=== PATIENT | male | born 1940 | race Caucasian/White ===

== ENCOUNTER 2020-04-17 11:38 | Emergency (ER) | payer MEDICARE, OTHER, SELFPAY ==
[2020-04-17 11:42] VITALS: BP 138/74; PULSE 86; RESP 16; TEMP 37.1; O2SAT 96
--- NOTE | 2020-04-17 12:30 | DI.CT.S_ITS ---
PROCEDURE: CT ABDOMEN PELVIS W CON INDICATIONS: pain prior SBO TECHNIQUE: After the administration of intravenous contrast, 5 mm thick sections acquired from the diaphragm to the symphysis. 5 mm coronal and sagittal reformats were acquired. For radiation dose reduction, the following was used: automated exposure control, adjustment of mA and/or kV according to patient size. COMPARISON: None. FINDINGS: Image quality: Excellent. ABDOMEN: Lung bases: There is mild atelectasis in the lung bases. Within the left lingula, there is a small subpleural nodule measuring up to 4 mm. Heart size is normal. There is a pacemaker lead extending into the right ventricle. Coronary arterial vascular calcifications noted. There is a moderate-sized hiatal hernia. Solid organs: Evaluation of the liver demonstrates no focal hepatic lesions. The gallbladder is distended without gallbladder wall thickening or calcified gallstones. Biliary system is non-dilated. Pancreas enhances normally. No peripancreatic fat stranding or fluid collections. No pancreatic duct dilatation. The spleen is normal in size. No adrenal nodules. There is an obstructing stone in the right renal pelvis measuring up to 1.3 cm with associated moderate right hydronephrosis. There is associated right perinephric stranding as well as slightly asymmetrically decreased enhancement of the right kidney. Mild asymmetric urothelial thickening is also noted in the right renal collecting system. Within the inferior pole of the right kidney, there is a nonobstructing stone measuring up to 0.5 cm. The left kidney demonstrates multiple parapelvic cysts without hydronephrosis. Peritoneum and bowel: Bowel loops demonstrate normal wall thickness and caliber. There is colonic diverticulosis without acute diverticulitis. No free fluid or air. Nodes and vessels: No retroperitoneal or mesenteric adenopathy by size criteria. Aorta and inferior vena cava are normal in size. 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 PELVIS: Genitourinary: Bladder wall thickness is normal.. The prostate demonstrates mild enlargement. Miscellaneous: No inguinal hernias or adenopathy. Bones: No suspicious bony lesions. No vertebral body compression fractures. There is a levoscoliosis of the lumbar spine centered at L3. Multilevel moderate to severe degenerative disc disease demonstrated within the mid and lower lumbar spine. IMPRESSION: 1. Large obstructing stone in the right renal pelvis with associated moderate right hydronephrosis associated with prominent perinephric stranding and mild urothelial thickening. Recommend correlation clinically for possible urinary tract infection. Mild asymmetrically delayed right nephrogram is also noted. 2. Additional small non obstructing right renal stone. 3. Small nonspecific subpleural nodule in the left lingula measuring up to 4 mm. If patient is at high risk for malignancy, a follow-up CT may be performed in 12 months to demonstrate stability. Dictated by: Aquiles Pretty M.D. on 04/17/2020 at 13:42 Approved by: Aquiles Pretty M.D. on 04/17/2020 at 13:52
[2020-04-17 12:33] LABS: Add Manual Diff / Slide Review NO; Basophils Absolute Auto 100 /uL (0-100); Basophils Percent Auto 0.7 % (0-2); Eosinophils Absolute Auto 900 /uL (0-450); Eosinophils Percent Auto 9.2 % (2-4); Hematocrit 31.7 % (41-53); Hemoglobin 10.7 g/dL (13.5-17.5); Lymphocytes Absolute Auto 900 /uL (1100-4500); Lymphocytes Percent Auto 8.8 % (25-40); Mean Corpuscular HGB Conc 33.7 % (30-36); Mean Corpuscular Hemoglobin 35.4 PG (26-34); Mean Corpuscular Volume 105.1 fL (80-100); Monocytes Absolute Auto 700 /uL (0-900); Monocytes Percent Auto 7.2 % (3-14); Neutrophils Absolute Auto 7600 /uL (1500-7000); Neutrophils Percent Auto 74.1 % (50-75); Platelet Count 219 X10^3/uL (150-400); Red Blood Cell Count 3.02 X10^6/uL (4.5-5.9); Red Cell Distribution Width 12.9 % (11.6-14.8); White Blood Cell Count 10.2 X10^3/uL (4.5-11.0)
--- NOTE | 2020-04-17 12:40 | ED.ABDPAIN ---
HPI - Abdominal Pain General Chief Complaint: Abdominal Pain Stated Complaint: Possibly SBO Time Seen by Provider: 04/17/20 11:40 Source: patient Mode of arrival: EMS Limitations: no limitations History of Present Illness HPI narrative: Patient is an 80-year-old male history of small-bowel obstruction presenting with abdominal pain which started at 7:00 a.m. this morning. He denies any nausea or vomiting he is not passing gas but had a normal bowel movement last night he says pain is actually a little bit better now. Initially he had retrocecal appendicitis which then caused adhesions he has had previous surgery for adhesions are. However he says usually it self-resolved he actually does not remember being admitted to the hospital for treatment and has not had an NG tube in a number of years. He said this morning he felt it coming on and was pacing around the house and it was not going away. MD complaint: abdominal pain Onset (ago): hour(s) Pain Consistency: intermittent Related Data Allergies Allergy/AdvReac Type Severity Reaction Status Date / Time No Known Drug Allergies Allergy Verified 04/17/20 12:06 Review of Systems Review of Systems Narrative: GENERAL: Denies chills, fatigue, malaise, fever, sweats, travel HEENT: Denies sinus pain, ear pain, sore throat, difficulty swallowing, neck pain RESPIRATORY: Denies dyspnea, cough, wheezing, hemoptysis, sputum. CARDIOVASCULAR: Denies chest pain, palpitations, orthopnea, edema GASTROINTESTINAL: See HPI : Denies dysuria, frequency, incontinence, hematuria, urinary retention, flank pain. MUSCULOSKELETAL: Denies weakness, joint pain, or bony pain SKIN: No rash, no erythema, no pruritus NEUROLOGIC: Denies weakness, dizziness, headache, numbness, change in speech, confusion PSYCHIATRIC: No concerning psychosocial issues. 12 point review of systems is negative except for those stated above and HPI Patient History Medical History Diabetes (Acute) Hypertension (Acute) Small bowel obstruction (Acute) Surgical History Status post appendectomy (Acute) Social History Smoking Status: Never smoker Smoking Status: Never smoker alcohol intake frequency: a few times a week Substance Use Type: does not use Exam Initial Vital Signs Initial Vital Signs: Vital Signs Temperature 98.8 F 04/17/20 11:42 Pulse Rate 86 04/17/20 11:42 Respiratory Rate 16 04/17/20 11:42 Blood Pressure 138/74 04/17/20 11:42 Pulse Oximetry 96 04/17/20 11:42 GENERAL: Alert well-appearing male HEENT: Head atraumatic,EOMI, pupils reactive, face symmetric CARDIOVASCULAR: Regular rate and rhythm without murmurs, rubs or gallops. RESPIRATORY: Breath sounds equal bilaterally, no wheezes rales or rhonchi. ABDOMEN: Soft, tender around mid abdomen Normoactive bowel sounds all 4 quadrants. No guarding or rebound. No distention. EXTREMITIES: Normal range of motion, no clubbing or edema. Neurovascularly intact NEUROLOGICAL: Alert and oriented x4.Normal gait and speech. SKIN: Warm, dry, no laceration, no petechiae, no rashes or lesions. Course Orders Ordered: ED Orders 04/17/20 12:26 Complete Blood Count AUTO DIFF Stat Comprehensive Metabolic Panel Stat Lactate (Lactic Acid) Stat Lipase Stat 04/17/20 12:30 CT abdomen pelvis w con Stat 04/17/20 12:50 Urine Microscopic Stat Discontinued Medications Sodium Chloride (Normal Saline 0.9%) 1,000 mls @ 150 mls/hr IV CONT SILVESTRE Last Infusion: 04/17/20 14:47 Dose: 150 mls/hr Documented by: Admin: 04/17/20 13:43 Dose: 150 mls/hr Documented by: KAY Vital Signs Vital signs: Vital Signs - 8 hr 04/17/20 11:42 04/17/20 14:12 04/17/20 14:13 Temperature 98.8 F Pulse Rate 86 89 90 Respiratory Rate 16 26 H 24 Blood Pressure 138/74 128/71 Pulse Oximetry 96 98 97 04/17/20 14:30 Temperature Pulse Rate 88 Respiratory Rate 22 Blood Pressure 127/69 Pulse Oximetry 97 MDM - Abdominal Pain Lab Data Attestation: I reviewed the patient's lab results. Result diagrams: 04/17/20 12:26 04/17/20 12:26 Labs: Lab Results 04/17/20 04/17/20 04/17/20 Range/Units 12:26 12:26 12:26 WBC 10.2 (4.5-11.0) X10^3/uL RBC 3.02 L (4.5-5.9) X10^6/uL Hgb 10.7 L (13.5-17.5) g/dL Hct 31.7 L (41-53) % MCV 105.1 H (80-100) fL MCH 35.4 H (26-34) PG MCHC 33.7 (30-36) % RDW 12.9 (11.6-14.8) % Plt Count 219 (150-400) X10^3/uL Neut % (Auto) 74.1 (50-75) % Lymph % (Auto) 8.8 L (25-40) % [place] % (Auto) 7.2 (3-14) % Eos % (Auto) 9.2 H (2-4) % Baso % (Auto) 0.7 (0-2) % Neut # (Auto) 7600 H (4376-3543) /uL Lymph # (Auto) 900 L (2351-3509) /uL [place] # (Auto) 700 (0-900) /uL Eos # (Auto) 900 H (0-450) /uL Baso # (Auto) 100 (0-100) /uL Sodium 141 (137-145) mmol/L Potassium 5.1 (3.4-5.1) mmol/L Chloride 117 H (98-107) mmol/L Carbon Dioxide 23 (22-32) mmol/L BUN 35 H (9-20) mg/dL Creatinine 1.49 H (0.66-1.25) mg/dL Estimated GFR 45.2 L (>60) mL/min BUN/Creatinine Ratio 23.5 H (6-22) Glucose 112 H (80-110) mg/dL Lactate 1.4 (0.7-2.1) mmol/L Calcium 9.9 (8.4-10.2) mg/dL Total Bilirubin 0.4 (0.2-1.3) mg/dL AST 18 (17-59) IU/L ALT 16 (<50) IU/L Alkaline Phosphatase 83 (38-126) U/L Total Protein 6.0 L (6.3-8.2) g/dL Albumin 3.5 (3.5-5.0) g/dL Globulin 2.5 (1.7-4.1) g/dL Albumin/Globulin Ratio 1.4 (1.0-2.8) Lipase 78 (23-300) U/L Urine RBC (0-5/HPF) Urine WBC (0-5/HPF) Urine Bacteria (None) Hyaline Casts (None) Ur Culture Indicated? 04/17/20 Range/Units 12:50 WBC (4.5-11.0) X10^3/uL RBC (4.5-5.9) X10^6/uL Hgb (13.5-17.5) g/dL Hct (41-53) % MCV (80-100) fL MCH (26-34) PG MCHC (30-36) % RDW (11.6-14.8) % Plt Count (150-400) X10^3/uL Neut % (Auto) (50-75) % Lymph % (Auto) (25-40) % [place] % (Auto) (3-14) % Eos % (Auto) (2-4) % Baso % (Auto) (0-2) % Neut # (Auto) (4490-4358) /uL Lymph # (Auto) (9038-7635) /uL [place] # (Auto) (0-900) /uL Eos # (Auto) (0-450) /uL Baso # (Auto) (0-100) /uL Sodium (137-145) mmol/L Potassium (3.4-5.1) mmol/L Chloride (98-107) mmol/L Carbon Dioxide (22-32) mmol/L BUN (9-20) mg/dL Creatinine (0.66-1.25) mg/dL Estimated GFR (>60) mL/min BUN/Creatinine Ratio (6-22) Glucose (80-110) mg/dL Lactate (0.7-2.1) mmol/L Calcium (8.4-10.2) mg/dL Total Bilirubin (0.2-1.3) mg/dL AST (17-59) IU/L ALT (<50) IU/L Alkaline Phosphatase (38-126) U/L Total Protein (6.3-8.2) g/dL Albumin (3.5-5.0) g/dL Globulin (1.7-4.1) g/dL Albumin/Globulin Ratio (1.0-2.8) Lipase (23-300) U/L Urine RBC 0-1/hpf (0-5/HPF) Urine WBC 0-1/hpf (0-5/HPF) Urine Bacteria Few (2-10) H (None) Hyaline Casts 0-1/lpf (None) Ur Culture Indicated? Cult not indicated Point of care testing: Urine Dip Bedside Urine Glucose Negative Bedside Urine Bilirubin + 1 Bedside Urine Ketone - Negative Urine Specific [place] 1.020 Bedside Urine Occult Blood +/- Bedside Urine pH 5.5 Bedside Urine Protein +/- 15 Bedside Urine Urobilinogen - Negative Bedside Urine Nitrite - Negative Bedside Urine Leukocytes - Negative Esterase Imaging Data CT scan - abdomen/pelvis: Radiologist's Impression: PROCEDURE: CT ABDOMEN PELVIS W CON INDICATIONS: pain prior SBO TECHNIQUE: After the administration of intravenous contrast, 5 mm thick sections acquired from the diaphragm to the symphysis. 5 mm coronal and sagittal reformats were acquired. For radiation dose reduction, the following was used: automated exposure control, adjustment of mA and/or kV according to patient size. COMPARISON: None. FINDINGS: Image quality: Excellent. ABDOMEN: Lung bases: There is mild atelectasis in the lung bases. Within the left lingula, there is a small subpleural nodule measuring up to 4 mm. Heart size is normal. There is a pacemaker lead extending into the right ventricle. Coronary arterial vascular calcifications noted. There is a moderate-sized hiatal hernia. Solid organs: Evaluation of the liver demonstrates no focal hepatic lesions. The gallbladder is distended without gallbladder wall thickening or calcified gallstones. Biliary system is non-dilated. Pancreas enhances normally. No peripancreatic fat stranding or fluid collections. No pancreatic duct dilatation. The spleen is normal in size. No adrenal nodules. There is an obstructing stone in the right renal pelvis measuring up to 1.3 cm with associated moderate right hydronephrosis. There is associated right perinephric stranding as well as slightly asymmetrically decreased enhancement of the right kidney. Mild asymmetric urothelial thickening is also noted in the right renal collecting system. Within the inferior pole of the right kidney, there is a nonobstructing stone measuring up to 0.5 cm. The left kidney demonstrates multiple parapelvic cysts without hydronephrosis. Peritoneum and bowel: Bowel loops demonstrate normal wall thickness and caliber. There is colonic diverticulosis without acute diverticulitis. No free fluid or air. Nodes and vessels: No retroperitoneal or mesenteric adenopathy by size criteria. Aorta and inferior vena cava are normal in size. 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 PELVIS: Genitourinary: Bladder wall thickness is normal.. The prostate demonstrates mild enlargement. Miscellaneous: No inguinal hernias or adenopathy. Bones: No suspicious bony lesions. No vertebral body compression fractures. There is a levoscoliosis of the lumbar spine centered at L3. Multilevel moderate to severe degenerative disc disease demonstrated within the mid and lower lumbar spine. IMPRESSION: 1. Large obstructing stone in the right renal pelvis with associated moderate right hydronephrosis associated with prominent perinephric stranding and mild urothelial thickening. Recommend correlation clinically for possible urinary tract infection. Mild asymmetrically delayed right nephrogram is also noted. 2. Additional small non obstructing right renal stone. 3. Small nonspecific subpleural nodule in the left lingula measuring up to 4 mm. If patient is at high risk for malignancy, a follow-up CT may be performed in 12 months to demonstrate stability. Dictated by: Aquiles Pretty M.D. on 04/17/2020 at 13:42 Approved by: Aquiles Pretty M.D. on 04/17/2020 at 13:52 MDM Narrative Medical decision making narrative: Patient says his creatinine is always a little elevated he is not sure what his numbers are he is also aware of his pulmonary nodule. He says that he has had a renal stone for some time as well. I am not convinced that patient has small bowel obstruction he never had any nausea vomiting or abdominal distention. It is unclear exactly what caused his abdominal pain I do not believe his renal stone cause any pain it does not seem to be moving. I discussed with him signs and symptoms of a bowel obstruction and when to return to the ED I discussed all findings with the patient, Education has been performed regarding treatment plan, diagnosis, warning signs and symptoms and all concerns have been addressed. Verbally agree with and understood all of the above. Discharge Plan Departure Patient Disposition: Home Clinical Impression: Calculus of kidney Abdominal pain Qualifiers: Abdominal location: generalized Qualified Code(s): R10.84 - Generalized abdominal pain Discharge Date/Time: 04/17/20 15:08 Instructions: DI for Kidney Stones, DI for Abdominal Pain-Adult Activity Restrictions/Additional Instructions: *YOU HAVE BEEN DIAGNOSED WITH abdominal pain *WHAT TO DO: At this time you do not have a small bowel obstruction. You are noted to have a stone in your kidney on the right. You may require urology consultation. You are also noted to have a pulmonary nodule on the left which will require a repeat CT scan to be sure it is not changing *CONTINUE TO TAKE MEDICATIONS DIRECTED *FOLLOW UP WITH YOUR PRIMARY CARE PROVIDER IN 2-3 DAYS *RETURN TO ER IF YOU SHOULD HAVE increasing abdominal pain, hardening of abdomen, vomiting, OR ANY NEW, WORSENING OR CONCERNING SYMPTOMS Referrals: [facility] [Outside]
[2020-04-17 12:53] LABS: Lactate (Lactic Acid) 1.4 mmol/L (0.7-2.1)
[2020-04-17 12:54] LABS: Alanine Aminotransferase 16 IU/L (<50); Albumin 3.5 g/dL (3.5-5.0); Albumin Globulin Ratio 1.4 (1.0-2.8); Alkaline Phosphatase 83 U/L (38-126); Aspartate Aminotransferase 18 IU/L (17-59); BUN Creatinine Ratio 23.5 (6-22); Bilirubin Total 0.4 mg/dL (0.2-1.3); Blood Urea Nitrogen 35 mg/dL (9-20); Calcium 9.9 mg/dL (8.4-10.2); Carbon Dioxide 23 mmol/L (22-32); Chloride 117 mmol/L (98-107); Estimated Glomerular Filt Rate 45.2 mL/min (>60); Globulin 2.5 g/dL (1.7-4.1); Glucose 112 mg/dL (80-110); HEMOLYSIS < 15 (0-50); Lipase 78 U/L (23-300); Potassium 5.1 mmol/L (3.4-5.1); Sodium 141 mmol/L (137-145)
[2020-04-17 13:33] LABS: Bacteria Urine Few (2-10); Culture Indicated Urine Cult Not Indicated; Hyaline Casts Urine 0-1/LPF; RBC Urine 0-1/HPF (0-5/HPF); WBC Urine 0-1/HPF (0-5/HPF)
[2020-04-17] MEDS: SODIUM CHLORIDE 0.9% 1,000 ML 150 ML IV (13:43)
[2020-04-17 14:12] VITALS: PULSE 89; RESP 26; O2SAT 98
[2020-04-17 14:13] VITALS: BP 128/71; PULSE 90; RESP 24; O2SAT 97
[2020-04-17 14:30] VITALS: BP 127/69; PULSE 88; RESP 22; O2SAT 97
== END 2020-04-17 15:08 | disposition home or self-care (01) ==
PROVIDERS: Emergency Provider Emergency Medicine
DX: N20.0 Calculus of kidney (principal); R10.84 Generalized abdominal pain; R79.89 Other specified abnormal findings of blood chemistry; R91.1 Solitary pulmonary nodule
CPT/HCPCS: 36415; 74177; 80053; 81003; 81015; 83605; 83690; 85025; 96360; 99284; Q9967

== ENCOUNTER 2020-05-08 16:53 | Emergency (ER) | payer MEDICARE, OTHER, SELFPAY ==
[2020-05-08] VITALS (17 sets, daily range): BP systolic 86–126; BP diastolic 50–72; PULSE 79–120; RESP 16–29; TEMP 36.4–38.1; O2SAT 93–98
--- NOTE | 2020-05-08 17:08 | DI.RAD.S_ITS ---
PROCEDURE: XR CHEST 1V INDICATIONS: flu-like symptoms TECHNIQUE: One view of the chest was acquired. COMPARISON: None. FINDINGS: Surgical changes and devices: A single lead pacer device is seen. Lungs and pleura: An incomplete inspiratory result is noted, causing a crowded appearance to the lung markings. No focal infiltrates are seen. No pneumothorax or significant pleural effusions are seen. Mediastinum: The cardiac contours are within normal limits. The aorta demonstrates calcification and tortuosity. Bones and chest wall: Age-appropriate bony degenerative changes are seen. No suspicious bony lesions. Overlying soft tissues appear unremarkable. IMPRESSION: Limited portable chest examination, without a significant cardiopulmonary abnormality identified. If there is clinical concern for a developing pulmonary process, a short-term followup chest series (with PA and lateral views, performed in deep inspiration) is suggested for further evaluation. Postoperative and degenerative changes are seen. Dictated by: Jorge Robertson M.D. on 05/08/2020 at 16:33 Approved by: Jorge Robertson M.D. on 05/08/2020 at 16:34
[2020-05-08 17:20] LABS: pH ABG 7.33 (7.35-7.45)
[2020-05-08 17:21] LABS: Fractionated Inspired Oxygen 21; HCO3 ABG 13 mmol/L (22-26); Oxygen Saturation ABG 94 % (95-100); PCO2 ABG 24.3 mmHg (35-45); PO2 ABG 76 mmHg (80-100); TCO2 ABG 13 mmol/L (21-31)
[2020-05-08] MEDS: SODIUM CHLORIDE 0.9% 1,000 ML 1000 ML IV ×2 (17:26→20:21)
[2020-05-08] MEDS: SODIUM CHLORIDE 0.9% 1,000 ML 150 ML IV (17:26)
--- NOTE | 2020-05-08 17:27 | ED.SEPSIS ---
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 The patient was seen in the clinic and was noted to have a fever and temperature to 105 was tachycardic and hypoxic as well as hypotensive and sent here to the emergency department. The patient had a stent removed from his left ureter for a kidney stone at [facility] on Friday. The patient has had fever chills and sweats without any headache. He has had a minimal cough with minimal shortness of breath but denies any chest pain. He has not been dizzy or lightheaded. He denies urinary frequency or urgency but has had burning dysuria and hematuria. The patient does not smoke cigarettes or use marijuana but drinks alcohol . He has had a history of asthma minor COPD with hypertension and diabetes mellitus. He denies a history of myocardial infarction stroke or congestive heart failure. He denies a history of hepatitis TB or HIV. He states that when he had his stent placed for the kidney stone he was tested negative for COVID-19. The patient this time denies that he is having any pain or discomfort. Review of Systems <Raúl Squires MD - Last Filed: 05/09/20 19:19> Review of Systems Narrative: The patient's review of systems were all negative except for those mentioned in the history of present illness. Patient History <Raúl Squires MD - Last Filed: 05/09/20 19:19> Medical History Diabetes (Acute) Hypertension (Acute) Small bowel obstruction (Acute) Surgical History Status post appendectomy (Acute) Social History Smoking Status: Never smoker Smoking Status: Never smoker alcohol intake frequency: a few times a week Substance Use Type: does not use Exam <Raúl Squires MD - Last Filed: 05/09/20 19:19> Narrative Exam Narrative: PHYSICAL EXAM: CONSTITUTIONAL: Awake, Alert, Oriented, Coherent, Cooperative in NAD. He has a sallow pale appearance and appears to be stoic answering questions but not volunteering additional information. HEAD: AT/NC EENT: PERRL, FROM of eyes, no discharge, no nystagmus, pale conjunctiva NOSE:No epistaxis or nasal drainage MOUTH:Oral mucosa is moist and pale pink,. NECK: Supple, no obvious JVD, Trachea is midline without stridor, no palpable LN. SPINE: Palpation of the cervical, Thoracic, Lumbar or Sacral spine reveals no gross deformity or tenderness. No CVA tenderness. THORAX: No deformity, retractions, chest wall tenderness. LUNGS: Breath sounds are clear symmetrical and decreased. HEART: Heart tones appear to be regular tachycardic without appreciable murmur. ABDOMEN: Soft, non-tender, normal bowel sounds without guarding, rebound, rigidity or palpable mass. EXTREMITIES: No edema, deformity, tenderness or cyanosis. SKIN: No rash, bruising, petechiae or purpura. NEURO: Awake, alert, oriented, conversive, cranial nerves II-XII are symmetrical , moves all 4 extremities and is ambulatory. Initial Vital Signs Initial Vital Signs: Vital Signs Temperature 100.6 F H 05/08/20 17:02 Pulse Rate 120 H 05/08/20 17:02 Respiratory Rate 29 H 05/08/20 17:02 Blood Pressure 88/53 L 05/08/20 17:02 Pulse Oximetry 94 05/08/20 17:02 <Arnav Rocha DO - Last Filed: 05/09/20 18:06> Initial Vital Signs Initial Vital Signs: Vital Signs Temperature 100.6 F H 05/08/20 17:02 Pulse Rate 120 H 05/08/20 17:02 Respiratory Rate 29 H 05/08/20 17:02 Blood Pressure 88/53 L 05/08/20 17:02 Pulse Oximetry 94 05/08/20 17:02 Course <Raúl Squires MD - Last Filed: 05/09/20 19:19> Course Course Narrative: 1754: The patient's arterial blood gases reveal a pH is 7.325 a pCO2 of 24.3 a PO2 of 76 a base excess of -13 a bicarb of 12.6 a total CO2 of 13 oxygen saturation 94%. 1925: The patient's blood pressure was 97/52 with a heart rate of 88. The patient's WBC was 11.5. On April 17 his hemoglobin was 10.7 hematocrit 31.7. Today his hemoglobin is 7.5 hematocrit is 23.1. Sodium is 132 potassium 4.7 chloride 112 CO2 13. The patient's anion gap is 7. BNP is 573 procalcitonin is elevated at 1.93. His EGFR is 18.6 indicating renal insufficiency. His LDH is 293 CRP is elevated at 21.0. The patient has a macrocytic anemia. There is no obvious source of bleeding. Because of the patient's recent tachycardia sepsis and relative hypotension, he will be transfused 2 units of packed red blood cells. This should help with his blood pressure and Oncotic pressure. His urinalysis reveals many bacteria 5-10 red blood cells and 30-100 white blood cells. The patient appears to have a urinary tract infection. His COVID-19 PCR was negative. When the patient had his ureteral stent removed at [facility] his COVID-19 was also negative. We are checking to see if there are beds available in the intensive care unit and if beds are available the patient will be admitted to the hospital. He appears to primarily be septic from an acute urinary tract infection. 0: There are no ICU beds available at this institution. The patient will need to be transferred to another institution. 1999: I discussed the patient with the store receiving specialist who has accepted the patient being transferred. The transfer center at [facility] is working on finding the patient a bed. 2018: The patient's rectal exam revealed good sphincter tone hard stool in his rectum prostate was smooth without tenderness. No nodules appreciated. His stool was great green and tested negative for occult blood. The patient is much more awake and alert at this time. The patient gave permission to be transfused 2 units of packed red blood cells. The patient states that he spoke with the urologist and he has a previous history of having renal insufficiency and kidney failure. A Cates catheter has been ordered for the patient. Patient will be transfused 2 units of packed red blood cells as soon as the blood is available and will be administered 1/3 L of fluid. The patient may need to be placed on pressor agents. The patient's chest x-ray from earlier revealed: IMPRESSION: Limited portable chest examination, without a significant cardiopulmonary abnormality identified. If there is clinical concern for a developing pulmonary process, a short-term followup chest series (with PA and lateral views, performed in deep inspiration) is suggested for further evaluation. Postoperative and degenerative changes are seen. --the patient's noncontrast CT of his abdomen and pelvis revealed: MPRESSION: [id number] right hydroureteronephrosis. A few 2 mm residual calculi/debris seen within the distal left ureter. Additional bilateral nephrolithiasis as above Patchy consolidative opacities in the right lung base, possibly aspiration/atelectasis versus less likely pneumonia. Additional chronic and incidental findings as above. Dictated by: Tarun Car M.D. on 05/08/2020 at 20:13 Approved by: Tarun Car M.D. on 05/08/2020 at 20:18 0803 05/09/2020: Rib or received by Dr. Rocha. No beds were available in the [facility], [facility], and [facility]. The patient has improved will recheck a CBC, complete metabolic panel, and lactic acid. 0820: Just discussed the patient with the status transfer center. It does not look like the patient needs ICU at this time but needs either step-down or monitored bed. The hospitalist from [facility] will call back to see whether not they can accept the patient and transfer him to either a step-down or a monitored bed on a general floor. 0858: Patient is putting urine out in his Cates catheter. I discussed the patient with the hospitalist Dr. Gracia at [facility]. They have accepted the patient and will call back with a bed. The patient has significantly improved from yesterday. Orders Ordered: Discontinued Medications Acetaminophen (Tylenol) 650 mg PO NOW ONE Stop: 05/09/20 00:31 Last Admin: 05/09/20 00:43 Dose: 650 mg Documented by: SHORTY Dexamethasone (Decadron) 10 mg IV NOW ONE Stop: 05/09/20 01:20 Last Admin: 05/09/20 02:40 Dose: 10 mg Documented by: UNIQUE Furosemide (Lasix) 40 mg IV NOW ONE Stop: 05/09/20 01:05 Last Admin: 05/09/20 01:11 Dose: 40 mg Documented by: UNIQUE Sodium Chloride (Normal Saline 0.9%) 1,000 mls @ 1,000 mls/hr IV BOLUS ONE Stop: 05/08/20 18:20 Last Infusion: 05/08/20 18:55 Dose: 0 mls/hr Documented by: Admin: 05/08/20 17:26 Dose: 1,000 mls/hr Documented by: MERLENE Sodium Chloride (Normal Saline 0.9%) 1,000 mls @ 150 mls/hr IV BOLUS ONE Stop: 05/09/20 00:00 Last Infusion: 05/09/20 02:53 Dose: 150 mls/hr Documented by: Infusion: 05/08/20 23:09 Dose: 150 mls/hr Documented by: Admin: 05/08/20 17:26 Dose: 150 mls/hr Documented by: MERLENE Piperacillin/Tazobactam/Dextrose (Zosyn) 4.5 gm in 100 mls @ 200 mls/hr IV NOW ONE Stop: 05/08/20 17:51 Last Infusion: 05/08/20 18:10 Dose: 0 mls/hr Documented by: Admin: 05/08/20 17:39 Dose: 200 mls/hr Documented by: MERLENE Vancomycin HCl/Dextrose (Vancomycin) 1,500 mg in 300 mls @ 200 mls/hr IV NOW ONE Stop: 05/08/20 18:51 Last Infusion: 05/08/20 20:19 Dose: 200 mls/hr Documented by: Admin: 05/08/20 18:10 Dose: 200 mls/hr Documented by: KAY Sodium Chloride (Normal Saline 0.9%) 1,000 mls @ 1,000 mls/hr IV BOLUS ONE Stop: 05/08/20 21:18 Last Infusion: 05/08/20 21:24 Dose: 0 mls/hr Documented by: Admin: 05/08/20 20:21 Dose: 1,000 mls/hr Documented by: KAY Piperacillin/Tazobactam/Dextrose (Zosyn) 4.5 gm in 100 mls @ 200 mls/hr IV Q8H [facility] Last Infusion: 05/09/20 09:35 Dose: 0 mls/hr Documented by: Admin: 05/09/20 08:44 Dose: 200 mls/hr Documented by: Infusion: 05/09/20 01:15 Dose: 0 mls/hr Documented by: Admin: 05/09/20 00:43 Dose: 200 mls/hr Documented by: SHORTY Lactated Ringer's (Lactated Ringers) 1,000 mls @ 1,000 mls/hr IV BOLUS ONE Stop: 05/09/20 02:03 Last Infusion: 05/09/20 06:22 Dose: 0 mls/hr Documented by: Admin: 05/09/20 01:10 Dose: 1,000 mls/hr Documented by: UNIQUE Ketorolac Tromethamine (Toradol) 15 mg IV NOW ONE Stop: 05/09/20 00:39 Last Admin: 05/09/20 00:43 Dose: 15 mg Documented by: SHORTY Lidocaine HCl (Urojet) 5 ml TOP NOW ONE Stop: 05/08/20 20:25 Last Admin: 05/08/20 20:30 Dose: 5 ml Documented by: KAY Pramipexole Dihydrochloride (Mirapex) 1 mg PO DAILY [facility] Last Admin: 05/09/20 08:45 Dose: 1 mg Documented by: RORY Vital Signs Vital signs: Vital Signs - 8 hr 05/09/20 10:36 Temperature 97.6 F Pulse Rate 95 H Respiratory Rate 22 Blood Pressure 108/59 L Pulse Oximetry 96 <Arnav Rocha DO - Last Filed: 05/09/20 18:06> Course Course Narrative: patient received in signout from Dr. Squires. I've performed an independent history and physical. He has been at baseline and doing well with stable vitals. [facility] called and states that though they had accepted the patient there is now a bed situation and they request that we keep him here overnight until a bed will likely become available in the morning. I was called to his room after both units of PRBCs had been given and the patient's rigors returned. He was given tylenol and toradol. His HR worked up to the 130s and BP remained stable. Repeat labs drawn. 0415 - patient resting comfortably. HR down to the 90s. Lactate down to 1.5. 0609 - patient continues to rest. Vitals remain stable. [facility] contacted and expects bed to be available late morning. Orders Ordered: Discontinued Medications Acetaminophen (Tylenol) 650 mg PO NOW ONE Stop: 05/09/20 00:31 Last Admin: 05/09/20 00:43 Dose: 650 mg Documented by: SHORTY Dexamethasone (Decadron) 10 mg IV NOW ONE Stop: 05/09/20 01:20 Last Admin: 05/09/20 02:40 Dose: 10 mg Documented by: UNIQUE Furosemide (Lasix) 40 mg IV NOW ONE Stop: 05/09/20 01:05 Last Admin: 05/09/20 01:11 Dose: 40 mg Documented by: UNIQUE Sodium Chloride (Normal Saline 0.9%) 1,000 mls @ 1,000 mls/hr IV BOLUS ONE Stop: 05/08/20 18:20 Last Infusion: 05/08/20 18:55 Dose: 0 mls/hr Documented by: Admin: 05/08/20 17:26 Dose: 1,000 mls/hr Documented by: MERLENE Sodium Chloride (Normal Saline 0.9%) 1,000 mls @ 150 mls/hr IV BOLUS ONE Stop: 05/09/20 00:00 Last Infusion: 05/09/20 02:53 Dose: 150 mls/hr Documented by: Infusion: 05/08/20 23:09 Dose: 150 mls/hr Documented by: Admin: 05/08/20 17:26 Dose: 150 mls/hr Documented by: MERLENE Piperacillin/Tazobactam/Dextrose (Zosyn) 4.5 gm in 100 mls @ 200 mls/hr IV NOW ONE Stop: 05/08/20 17:51 Last Infusion: 05/08/20 18:10 Dose: 0 mls/hr Documented by: Admin: 05/08/20 17:39 Dose: 200 mls/hr Documented by: MERLENE Vancomycin HCl/Dextrose (Vancomycin) 1,500 mg in 300 mls @ 200 mls/hr IV NOW ONE Stop: 05/08/20 18:51 Last Infusion: 05/08/20 20:19 Dose: 200 mls/hr Documented by: Admin: 05/08/20 18:10 Dose: 200 mls/hr Documented by: KAY Sodium Chloride (Normal Saline 0.9%) 1,000 mls @ 1,000 mls/hr IV BOLUS ONE Stop: 05/08/20 21:18 Last Infusion: 05/08/20 21:24 Dose: 0 mls/hr Documented by: Admin: 05/08/20 20:21 Dose: 1,000 mls/hr Documented by: KAY Piperacillin/Tazobactam/Dextrose (Zosyn) 4.5 gm in 100 mls @ 200 mls/hr IV Q8H [facility] Last Infusion: 05/09/20 09:35 Dose: 0 mls/hr Documented by: Admin: 05/09/20 08:44 Dose: 200 mls/hr Documented by: Infusion: 05/09/20 01:15 Dose: 0 mls/hr Documented by: Admin: 05/09/20 00:43 Dose: 200 mls/hr Documented by: SHORTY Lactated Ringer's (Lactated Ringers) 1,000 mls @ 1,000 mls/hr IV BOLUS ONE Stop: 05/09/20 02:03 Last Infusion: 05/09/20 06:22 Dose: 0 mls/hr Documented by: Admin: 05/09/20 01:10 Dose: 1,000 mls/hr Documented by: UNIQUE Ketorolac Tromethamine (Toradol) 15 mg IV NOW ONE Stop: 05/09/20 00:39 Last Admin: 05/09/20 00:43 Dose: 15 mg Documented by: SHORTY Lidocaine HCl (Urojet) 5 ml TOP NOW ONE Stop: 05/08/20 20:25 Last Admin: 05/08/20 20:30 Dose: 5 ml Documented by: KAY Pramipexole Dihydrochloride (Mirapex) 1 mg PO DAILY [facility] Last Admin: 05/09/20 08:45 Dose: 1 mg Documented by: RORY Vital Signs Vital signs: Vital Signs - 8 hr 05/09/20 10:36 Temperature 97.6 F Pulse Rate 95 H Respiratory Rate 22 Blood Pressure 108/59 L Pulse Oximetry 96 MDM - Sepsis <Raúl Squires MD - Last Filed: 05/09/20 19:19> Medical Records Attestation: I reviewed the patient's medical records. Lab Data Attestation: I reviewed the patient's lab results. Result diagrams: 05/09/20 08:40 05/09/20 08:40 Labs: Lab Results 05/08/20 05/08/20 05/08/20 Range/Units 17:05 17:08 17:15 WBC 11.5 H (4.5-11.0) X10^3/uL RBC 2.18 L (4.5-5.9) X10^6/uL Hgb 7.5 L (13.5-17.5) g/dL Hct 23.1 L (41-53) % MCV 106.1 H (80-100) fL MCH 34.4 H (26-34) PG MCHC 32.4 (30-36) % RDW 12.4 (11.6-14.8) % Plt Count 158 (150-400) X10^3/uL Neut % (Auto) 85.7 H (50-75) % Lymph % (Auto) 3.2 L (25-40) % [place] % (Auto) 10.7 (3-14) % Eos % (Auto) 0.1 L (2-4) % Baso % (Auto) 0.3 (0-2) % Neut # (Auto) 9900 H (8130-4706) /uL Lymph # (Auto) 400 L (9208-0212) /uL [place] # (Auto) 1200 H (0-900) /uL Eos # (Auto) 0 (0-450) /uL Baso # (Auto) 0 (0-100) /uL D-Dimer (<230) ng/mL ABG pH 7.33 L (7.35-7.45) ABG pCO2 24.3 L* (35-45) mmHg ABG pO2 76 L (80-100) mmHg ABG HCO3 13 L (22-26) mmol/L ABG Total CO2 13 L (21-31) mmol/L ABG O2 Saturation 94 L (95-100) % ABG Base Excess -13.0 L (-2-2) mmol/L FiO2 21 Sodium (137-145) mmol/L Potassium (3.4-5.1) mmol/L Chloride (98-107) mmol/L Carbon Dioxide (22-32) mmol/L BUN (9-20) mg/dL Creatinine (0.66-1.25) mg/dL Estimated GFR (>60) mL/min BUN/Creatinine Ratio (6-22) Glucose (80-110) mg/dL Lactate (0.7-2.1) mmol/L Calcium (8.4-10.2) mg/dL Ferritin (18-464) ng/mL Total Bilirubin (0.2-1.3) mg/dL AST (17-59) IU/L ALT (<50) IU/L Alkaline Phosphatase (38-126) U/L Lactate Dehydrogenase (313-618) U/L Total Creatine Kinase (55-170) U/L CK-MB (CK-2) CK-MB (CK-2) Rel Index Troponin I (0.01-0.034) ng/mL C-Reactive Protein (<1.0) mg/dL NT-Pro-B Natriuret Pep (<450) pg/mL Total Protein (6.3-8.2) g/dL Albumin (3.5-5.0) g/dL Globulin (1.7-4.1) g/dL Albumin/Globulin Ratio (1.0-2.8) Procalcitonin (<0.5) ng/mL Urine Color Urine Appearance Urine pH (4.5-8.0) Ur Specific [place] (1.000-1.035) Urine Protein (Negative) Urine Glucose (UA) (Negative) g/dL Urine Ketones (NEGATIVE) Urine Occult Blood (Negative) Urine Nitrate (Negative) Urine Bilirubin (NEGATIVE) Urine Urobilinogen (0.2) E.U./dL Ur Leukocyte Esterase (NEGATIVE) Urine RBC (0-5/HPF) Urine WBC (0-5/HPF) Ur Squamous Epith Cells (0-5/HPF) Amorphous Sediment Urine Bacteria (None) Urine Mucus (Negative) Ur Culture Indicated? COVID-19 PCR Negative (Negative) Blood Type Antibody Screen Crossmatch 05/08/20 05/08/20 05/08/20 Range/Units 17:15 17:15 17:15 WBC (4.5-11.0) X10^3/uL RBC (4.5-5.9) X10^6/uL Hgb (13.5-17.5) g/dL Hct (41-53) % MCV (80-100) fL MCH (26-34) PG MCHC (30-36) % RDW (11.6-14.8) % Plt Count (150-400) X10^3/uL Neut % (Auto) (50-75) % Lymph % (Auto) (25-40) % [place] % (Auto) (3-14) % Eos % (Auto) (2-4) % Baso % (Auto) (0-2) % Neut # (Auto) (5911-4492) /uL Lymph # (Auto) (6986-4996) /uL [place] # (Auto) (0-900) /uL Eos # (Auto) (0-450) /uL Baso # (Auto) (0-100) /uL D-Dimer 1416 H (<230) ng/mL ABG pH (7.35-7.45) ABG pCO2 (35-45) mmHg ABG pO2 (80-100) mmHg ABG HCO3 (22-26) mmol/L ABG Total CO2 (21-31) mmol/L ABG O2 Saturation (95-100) % ABG Base Excess (-2-2) mmol/L FiO2 Sodium 132 L (137-145) mmol/L Potassium 4.7 (3.4-5.1) mmol/L Chloride 112 H (98-107) mmol/L Carbon Dioxide 13 L (22-32) mmol/L BUN 57 H (9-20) mg/dL Creatinine 3.22 H (0.66-1.25) mg/dL Estimated GFR 18.6 L (>60) mL/min BUN/Creatinine Ratio 17.7 (6-22) Glucose 166 H (80-110) mg/dL Lactate (0.7-2.1) mmol/L Calcium 8.7 (8.4-10.2) mg/dL Ferritin 181 (18-464) ng/mL Total Bilirubin 0.9 (0.2-1.3) mg/dL AST 14 L (17-59) IU/L ALT 11 (<50) IU/L Alkaline Phosphatase 69 (38-126) U/L Lactate Dehydrogenase 293 L (313-618) U/L Total Creatine Kinase 32 L (55-170) U/L CK-MB (CK-2) TNP CK-MB (CK-2) Rel Index TNP Troponin I < 0.012 (0.01-0.034) ng/mL C-Reactive Protein 21.0 H (<1.0) mg/dL NT-Pro-B Natriuret Pep 573 H (<450) pg/mL Total Protein 5.2 L (6.3-8.2) g/dL Albumin 2.6 L (3.5-5.0) g/dL Globulin 2.6 (1.7-4.1) g/dL Albumin/Globulin Ratio 1.0 (1.0-2.8) Procalcitonin 1.93 H (<0.5) ng/mL Urine Color Urine Appearance Urine pH (4.5-8.0) Ur Specific [place] (1.000-1.035) Urine Protein (Negative) Urine Glucose (UA) (Negative) g/dL Urine Ketones (NEGATIVE) Urine Occult Blood (Negative) Urine Nitrate (Negative) Urine Bilirubin (NEGATIVE) Urine Urobilinogen (0.2) E.U./dL Ur Leukocyte Esterase (NEGATIVE) Urine RBC (0-5/HPF) Urine WBC (0-5/HPF) Ur Squamous Epith Cells (0-5/HPF) Amorphous Sediment Urine Bacteria (None) Urine Mucus (Negative) Ur Culture Indicated? COVID-19 PCR (Negative) Blood Type Antibody Screen Crossmatch 05/08/20 05/08/20 05/08/20 Range/Units 17:15 18:26 19:32 WBC (4.5-11.0) X10^3/uL RBC (4.5-5.9) X10^6/uL Hgb (13.5-17.5) g/dL Hct (41-53) % MCV (80-100) fL MCH (26-34) PG MCHC (30-36) % RDW (11.6-14.8) % Plt Count (150-400) X10^3/uL Neut % (Auto) (50-75) % Lymph % (Auto) (25-40) % [place] % (Auto) (3-14) % Eos % (Auto) (2-4) % Baso % (Auto) (0-2) % Neut # (Auto) (8045-3278) /uL Lymph # (Auto) (0962-6292) /uL [place] # (Auto) (0-900) /uL Eos # (Auto) (0-450) /uL Baso # (Auto) (0-100) /uL D-Dimer (<230) ng/mL ABG pH (7.35-7.45) ABG pCO2 (35-45) mmHg ABG pO2 (80-100) mmHg ABG HCO3 (22-26) mmol/L ABG Total CO2 (21-31) mmol/L ABG O2 Saturation (95-100) % ABG Base Excess (-2-2) mmol/L FiO2 Sodium (137-145) mmol/L Potassium (3.4-5.1) mmol/L Chloride (98-107) mmol/L Carbon Dioxide (22-32) mmol/L BUN (9-20) mg/dL Creatinine (0.66-1.25) mg/dL Estimated GFR (>60) mL/min BUN/Creatinine Ratio (6-22) Glucose (80-110) mg/dL Lactate 3.6 H (0.7-2.1) mmol/L Calcium (8.4-10.2) mg/dL Ferritin (18-464) ng/mL Total Bilirubin (0.2-1.3) mg/dL AST (17-59) IU/L ALT (<50) IU/L Alkaline Phosphatase (38-126) U/L Lactate Dehydrogenase (313-618) U/L Total Creatine Kinase (55-170) U/L CK-MB (CK-2) CK-MB (CK-2) Rel Index Troponin I (0.01-0.034) ng/mL C-Reactive Protein (<1.0) mg/dL NT-Pro-B Natriuret Pep (<450) pg/mL Total Protein (6.3-8.2) g/dL Albumin (3.5-5.0) g/dL Globulin (1.7-4.1) g/dL Albumin/Globulin Ratio (1.0-2.8) Procalcitonin (<0.5) ng/mL Urine Color Yellow Urine Appearance Sl cloudy Urine pH 5.0 (4.5-8.0) Ur Specific [place] 1.010 (1.000-1.035) Urine Protein 1+ H (Negative) Urine Glucose (UA) Negative (Negative) g/dL Urine Ketones Negative (NEGATIVE) Urine Occult Blood 3+ H (Negative) Urine Nitrate Negative (Negative) Urine Bilirubin Negative (NEGATIVE) Urine Urobilinogen 0.2 (0.2) E.U./dL Ur Leukocyte Esterase 3+ H (NEGATIVE) Urine RBC 5-10/hpf H (0-5/HPF) Urine WBC 30-100/hpf H (0-5/HPF) Ur Squamous Epith Cells 1-5 /hpf (0-5/HPF) Amorphous Sediment 1+ Urine Bacteria Many (>30) H (None) Urine Mucus 1+ H (Negative) Ur Culture Indicated? Specimen cultured COVID-19 PCR (Negative) Blood Type O Positive Antibody Screen Negative Crossmatch See Detail 05/08/20 05/09/20 05/09/20 Range/Units 19:32 00:47 00:47 WBC 11.8 H (4.5-11.0) X10^3/uL RBC 3.48 L (4.5-5.9) X10^6/uL Hgb 11.9 L (13.5-17.5) g/dL Hct 36.0 L (41-53) % MCV 103.4 H (80-100) fL MCH 34.1 H (26-34) PG MCHC 33.0 (30-36) % RDW 16.8 H (11.6-14.8) % Plt Count 172 (150-400) X10^3/uL Neut % (Auto) 85.8 H (50-75) % Lymph % (Auto) 8.5 L (25-40) % [place] % (Auto) 4.6 (3-14) % Eos % (Auto) 0.6 L (2-4) % Baso % (Auto) 0.5 (0-2) % Neut # (Auto) 08366 H (7780-5562) /uL Lymph # (Auto) 1000 L (0375-0481) /uL [place] # (Auto) 500 (0-900) /uL Eos # (Auto) 100 (0-450) /uL Baso # (Auto) 100 (0-100) /uL D-Dimer (<230) ng/mL ABG pH (7.35-7.45) ABG pCO2 (35-45) mmHg ABG pO2 (80-100) mmHg ABG HCO3 (22-26) mmol/L ABG Total CO2 (21-31) mmol/L ABG O2 Saturation (95-100) % ABG Base Excess (-2-2) mmol/L FiO2 Sodium 137 (137-145) mmol/L Potassium 5.8 H (3.4-5.1) mmol/L Chloride 114 H (98-107) mmol/L Carbon Dioxide 14 L (22-32) mmol/L BUN 60 H (9-20) mg/dL Creatinine 3.46 H (0.66-1.25) mg/dL Estimated GFR 17.1 L (>60) mL/min BUN/Creatinine Ratio 17.3 (6-22) Glucose 135 H (80-110) mg/dL Lactate 2.0 (0.7-2.1) mmol/L Calcium 9.4 (8.4-10.2) mg/dL Ferritin (18-464) ng/mL Total Bilirubin (0.2-1.3) mg/dL AST (17-59) IU/L ALT (<50) IU/L Alkaline Phosphatase (38-126) U/L Lactate Dehydrogenase (313-618) U/L Total Creatine Kinase (55-170) U/L CK-MB (CK-2) CK-MB (CK-2) Rel Index Troponin I (0.01-0.034) ng/mL C-Reactive Protein (<1.0) mg/dL NT-Pro-B Natriuret Pep (<450) pg/mL Total Protein (6.3-8.2) g/dL Albumin (3.5-5.0) g/dL Globulin (1.7-4.1) g/dL Albumin/Globulin Ratio (1.0-2.8) Procalcitonin (<0.5) ng/mL Urine Color Urine Appearance Urine pH (4.5-8.0) Ur Specific [place] (1.000-1.035) Urine Protein (Negative) Urine Glucose (UA) (Negative) g/dL Urine Ketones (NEGATIVE) Urine Occult Blood (Negative) Urine Nitrate (Negative) Urine Bilirubin (NEGATIVE) Urine Urobilinogen (0.2) E.U./dL Ur Leukocyte Esterase (NEGATIVE) Urine RBC (0-5/HPF) Urine WBC (0-5/HPF) Ur Squamous Epith Cells (0-5/HPF) Amorphous Sediment Urine Bacteria (None) Urine Mucus (Negative) Ur Culture Indicated? COVID-19 PCR (Negative) Blood Type Antibody Screen Crossmatch 05/09/20 05/09/20 05/09/20 Range/Units 00:47 03:00 08:40 WBC 11.2 H (4.5-11.0) X10^3/uL RBC 3.05 L (4.5-5.9) X10^6/uL Hgb 10.3 L (13.5-17.5) g/dL Hct 30.8 L (41-53) % MCV 100.9 H (80-100) fL MCH 33.8 (26-34) PG MCHC 33.5 (30-36) % RDW 16.7 H (11.6-14.8) % Plt Count 155 (150-400) X10^3/uL Neut % (Auto) 95.5 H (50-75) % Lymph % (Auto) 1.7 L (25-40) % [place] % (Auto) 2.5 L (3-14) % Eos % (Auto) 0.0 L (2-4) % Baso % (Auto) 0.3 (0-2) % Neut # (Auto) 99772 H (9038-8947) /uL Lymph # (Auto) 200 L (5579-3544) /uL [place] # (Auto) 300 (0-900) /uL Eos # (Auto) 0 (0-450) /uL Baso # (Auto) 0 (0-100) /uL D-Dimer (<230) ng/mL ABG pH (7.35-7.45) ABG pCO2 (35-45) mmHg ABG pO2 (80-100) mmHg ABG HCO3 (22-26) mmol/L ABG Total CO2 (21-31) mmol/L ABG O2 Saturation (95-100) % ABG Base Excess (-2-2) mmol/L FiO2 Sodium (137-145) mmol/L Potassium (3.4-5.1) mmol/L Chloride (98-107) mmol/L Carbon Dioxide (22-32) mmol/L BUN (9-20) mg/dL Creatinine (0.66-1.25) mg/dL Estimated GFR (>60) mL/min BUN/Creatinine Ratio (6-22) Glucose (80-110) mg/dL Lactate 2.8 H 1.5 (0.7-2.1) mmol/L Calcium (8.4-10.2) mg/dL Ferritin (18-464) ng/mL Total Bilirubin (0.2-1.3) mg/dL AST (17-59) IU/L ALT (<50) IU/L Alkaline Phosphatase (38-126) U/L Lactate Dehydrogenase (313-618) U/L Total Creatine Kinase (55-170) U/L CK-MB (CK-2) CK-MB (CK-2) Rel Index Troponin I (0.01-0.034) ng/mL C-Reactive Protein (<1.0) mg/dL NT-Pro-B Natriuret Pep (<450) pg/mL Total Protein (6.3-8.2) g/dL Albumin (3.5-5.0) g/dL Globulin (1.7-4.1) g/dL Albumin/Globulin Ratio (1.0-2.8) Procalcitonin (<0.5) ng/mL Urine Color Urine Appearance Urine pH (4.5-8.0) Ur Specific [place] (1.000-1.035) Urine Protein (Negative) Urine Glucose (UA) (Negative) g/dL Urine Ketones (NEGATIVE) Urine Occult Blood (Negative) Urine Nitrate (Negative) Urine Bilirubin (NEGATIVE) Urine Urobilinogen (0.2) E.U./dL Ur Leukocyte Esterase (NEGATIVE) Urine RBC (0-5/HPF) Urine WBC (0-5/HPF) Ur Squamous Epith Cells (0-5/HPF) Amorphous Sediment Urine Bacteria (None) Urine Mucus (Negative) Ur Culture Indicated? COVID-19 PCR (Negative) Blood Type Antibody Screen Crossmatch 05/09/20 05/09/20 Range/Units 08:40 08:40 WBC (4.5-11.0) X10^3/uL RBC (4.5-5.9) X10^6/uL Hgb (13.5-17.5) g/dL Hct (41-53) % MCV (80-100) fL MCH (26-34) PG MCHC (30-36) % RDW (11.6-14.8) % Plt Count (150-400) X10^3/uL Neut % (Auto) (50-75) % Lymph % (Auto) (25-40) % [place] % (Auto) (3-14) % Eos % (Auto) (2-4) % Baso % (Auto) (0-2) % Neut # (Auto) (8036-2151) /uL Lymph # (Auto) (4887-9445) /uL [place] # (Auto) (0-900) /uL Eos # (Auto) (0-450) /uL Baso # (Auto) (0-100) /uL D-Dimer (<230) ng/mL ABG pH (7.35-7.45) ABG pCO2 (35-45) mmHg ABG pO2 (80-100) mmHg ABG HCO3 (22-26) mmol/L ABG Total CO2 (21-31) mmol/L ABG O2 Saturation (95-100) % ABG Base Excess (-2-2) mmol/L FiO2 Sodium 135 L (137-145) mmol/L Potassium 5.4 H (3.4-5.1) mmol/L Chloride 113 H (98-107) mmol/L Carbon Dioxide 12 L (22-32) mmol/L BUN 62 H (9-20) mg/dL Creatinine 3.56 H (0.66-1.25) mg/dL Estimated GFR 16.5 L (>60) mL/min BUN/Creatinine Ratio 17.4 (6-22) Glucose 200 H (80-110) mg/dL Lactate 0.7 (0.7-2.1) mmol/L Calcium 9.1 (8.4-10.2) mg/dL Ferritin (18-464) ng/mL Total Bilirubin 1.3 (0.2-1.3) mg/dL AST 22 (17-59) IU/L ALT 11 (<50) IU/L Alkaline Phosphatase 73 (38-126) U/L Lactate Dehydrogenase (313-618) U/L Total Creatine Kinase (55-170) U/L CK-MB (CK-2) CK-MB (CK-2) Rel Index Troponin I (0.01-0.034) ng/mL C-Reactive Protein (<1.0) mg/dL NT-Pro-B Natriuret Pep (<450) pg/mL Total Protein 5.5 L (6.3-8.2) g/dL Albumin 2.7 L (3.5-5.0) g/dL Globulin 2.8 (1.7-4.1) g/dL Albumin/Globulin Ratio 1.0 (1.0-2.8) Procalcitonin (<0.5) ng/mL Urine Color Urine Appearance Urine pH (4.5-8.0) Ur Specific [place] (1.000-1.035) Urine Protein (Negative) Urine Glucose (UA) (Negative) g/dL Urine Ketones (NEGATIVE) Urine Occult Blood (Negative) Urine Nitrate (Negative) Urine Bilirubin (NEGATIVE) Urine Urobilinogen (0.2) E.U./dL Ur Leukocyte Esterase (NEGATIVE) Urine RBC (0-5/HPF) Urine WBC (0-5/HPF) Ur Squamous Epith Cells (0-5/HPF) Amorphous Sediment Urine Bacteria (None) Urine Mucus (Negative) Ur Culture Indicated? COVID-19 PCR (Negative) Blood Type Antibody Screen Crossmatch Point of Care Testing Stool Occult Blood Negative ECG Data Attestation: I personally reviewed and interpreted this ECG as follows: Interpretation: The patient's EKG obtained at 5:30 p.m. reveals a sinus tachycardia with a ventricular rate of 104. GA interval is 147 milliseconds QRS is 93 milliseconds QTC is 419 milliseconds . Left axis deviation. The patient has a very small R-wave but otherwise the confirmation in lead III appears to be QS and a very low R-wave in AVF. There are no acute diagnostic ST or T-wave changes. The ST segments are nonspecific. <Arnav Rocha, DO - Last Filed: 05/09/20 18:06> Lab Data Labs: Lab Results 05/08/20 05/08/20 05/08/20 Range/Units 17:05 17:08 17:15 WBC 11.5 H (4.5-11.0) X10^3/uL RBC 2.18 L (4.5-5.9) X10^6/uL Hgb 7.5 L (13.5-17.5) g/dL Hct 23.1 L (41-53) % MCV 106.1 H (80-100) fL MCH 34.4 H (26-34) PG MCHC 32.4 (30-36) % RDW 12.4 (11.6-14.8) % Plt Count 158 (150-400) X10^3/uL Neut % (Auto) 85.7 H (50-75) % Lymph % (Auto) 3.2 L (25-40) % [place] % (Auto) 10.7 (3-14) % Eos % (Auto) 0.1 L (2-4) % Baso % (Auto) 0.3 (0-2) % Neut # (Auto) 9900 H (5737-8532) /uL Lymph # (Auto) 400 L (6680-0747) /uL [place] # (Auto) 1200 H (0-900) /uL Eos # (Auto) 0 (0-450) /uL Baso # (Auto) 0 (0-100) /uL D-Dimer (<230) ng/mL ABG pH 7.33 L (7.35-7.45) ABG pCO2 24.3 L* (35-45) mmHg ABG pO2 76 L (80-100) mmHg ABG HCO3 13 L (22-26) mmol/L ABG Total CO2 13 L (21-31) mmol/L ABG O2 Saturation 94 L (95-100) % ABG Base Excess -13.0 L (-2-2) mmol/L FiO2 21 Sodium (137-145) mmol/L Potassium (3.4-5.1) mmol/L Chloride (98-107) mmol/L Carbon Dioxide (22-32) mmol/L BUN (9-20) mg/dL Creatinine (0.66-1.25) mg/dL Estimated GFR (>60) mL/min BUN/Creatinine Ratio (6-22) Glucose (80-110) mg/dL Lactate (0.7-2.1) mmol/L Calcium (8.4-10.2) mg/dL Ferritin (18-464) ng/mL Total Bilirubin (0.2-1.3) mg/dL AST (17-59) IU/L ALT (<50) IU/L Alkaline Phosphatase (38-126) U/L Lactate Dehydrogenase (313-618) U/L Total Creatine Kinase (55-170) U/L CK-MB (CK-2) CK-MB (CK-2) Rel Index Troponin I (0.01-0.034) ng/mL C-Reactive Protein (<1.0) mg/dL NT-Pro-B Natriuret Pep (<450) pg/mL Total Protein (6.3-8.2) g/dL Albumin (3.5-5.0) g/dL Globulin (1.7-4.1) g/dL Albumin/Globulin Ratio (1.0-2.8) Procalcitonin (<0.5) ng/mL Urine Color Urine Appearance Urine pH (4.5-8.0) Ur Specific [place] (1.000-1.035) Urine Protein (Negative) Urine Glucose (UA) (Negative) g/dL Urine Ketones (NEGATIVE) Urine Occult Blood (Negative) Urine Nitrate (Negative) Urine Bilirubin (NEGATIVE) Urine Urobilinogen (0.2) E.U./dL Ur Leukocyte Esterase (NEGATIVE) Urine RBC (0-5/HPF) Urine WBC (0-5/HPF) Ur Squamous Epith Cells (0-5/HPF) Amorphous Sediment Urine Bacteria (None) Urine Mucus (Negative) Ur Culture Indicated? COVID-19 PCR Negative (Negative) Blood Type Antibody Screen Crossmatch 05/08/20 05/08/20 05/08/20 Range/Units 17:15 17:15 17:15 WBC (4.5-11.0) X10^3/uL RBC (4.5-5.9) X10^6/uL Hgb (13.5-17.5) g/dL Hct (41-53) % MCV (80-100) fL MCH (26-34) PG MCHC (30-36) % RDW (11.6-14.8) % Plt Count (150-400) X10^3/uL Neut % (Auto) (50-75) % Lymph % (Auto) (25-40) % [place] % (Auto) (3-14) % Eos % (Auto) (2-4) % Baso % (Auto) (0-2) % Neut # (Auto) (3601-3446) /uL Lymph # (Auto) (5365-8931) /uL [place] # (Auto) (0-900) /uL Eos # (Auto) (0-450) /uL Baso # (Auto) (0-100) /uL D-Dimer 1416 H (<230) ng/mL ABG pH (7.35-7.45) ABG pCO2 (35-45) mmHg ABG pO2 (80-100) mmHg ABG HCO3 (22-26) mmol/L ABG Total CO2 (21-31) mmol/L ABG O2 Saturation (95-100) % ABG Base Excess (-2-2) mmol/L FiO2 Sodium 132 L (137-145) mmol/L Potassium 4.7 (3.4-5.1) mmol/L Chloride 112 H (98-107) mmol/L Carbon Dioxide 13 L (22-32) mmol/L BUN 57 H (9-20) mg/dL Creatinine 3.22 H (0.66-1.25) mg/dL Estimated GFR 18.6 L (>60) mL/min BUN/Creatinine Ratio 17.7 (6-22) Glucose 166 H (80-110) mg/dL Lactate (0.7-2.1) mmol/L Calcium 8.7 (8.4-10.2) mg/dL Ferritin 181 (18-464) ng/mL Total Bilirubin 0.9 (0.2-1.3) mg/dL AST 14 L (17-59) IU/L ALT 11 (<50) IU/L Alkaline Phosphatase 69 (38-126) U/L Lactate Dehydrogenase 293 L (313-618) U/L Total Creatine Kinase 32 L (55-170) U/L CK-MB (CK-2) TNP CK-MB (CK-2) Rel Index TNP Troponin I < 0.012 (0.01-0.034) ng/mL C-Reactive Protein 21.0 H (<1.0) mg/dL NT-Pro-B Natriuret Pep 573 H (<450) pg/mL Total Protein 5.2 L (6.3-8.2) g/dL Albumin 2.6 L (3.5-5.0) g/dL Globulin 2.6 (1.7-4.1) g/dL Albumin/Globulin Ratio 1.0 (1.0-2.8) Procalcitonin 1.93 H (<0.5) ng/mL Urine Color Urine Appearance Urine pH (4.5-8.0) Ur Specific [place] (1.000-1.035) Urine Protein (Negative) Urine Glucose (UA) (Negative) g/dL Urine Ketones (NEGATIVE) Urine Occult Blood (Negative) Urine Nitrate (Negative) Urine Bilirubin (NEGATIVE) Urine Urobilinogen (0.2) E.U./dL Ur Leukocyte Esterase (NEGATIVE) Urine RBC (0-5/HPF) Urine WBC (0-5/HPF) Ur Squamous Epith Cells (0-5/HPF) Amorphous Sediment Urine Bacteria (None) Urine Mucus (Negative) Ur Culture Indicated? COVID-19 PCR (Negative) Blood Type Antibody Screen Crossmatch 05/08/20 05/08/20 05/08/20 Range/Units 17:15 18:26 19:32 WBC (4.5-11.0) X10^3/uL RBC (4.5-5.9) X10^6/uL Hgb (13.5-17.5) g/dL Hct (41-53) % MCV (80-100) fL MCH (26-34) PG MCHC (30-36) % RDW (11.6-14.8) % Plt Count (150-400) X10^3/uL Neut % (Auto) (50-75) % Lymph % (Auto) (25-40) % [place] % (Auto) (3-14) % Eos % (Auto) (2-4) % Baso % (Auto) (0-2) % Neut # (Auto) (4100-5134) /uL Lymph # (Auto) (6153-1354) /uL [place] # (Auto) (0-900) /uL Eos # (Auto) (0-450) /uL Baso # (Auto) (0-100) /uL D-Dimer (<230) ng/mL ABG pH (7.35-7.45) ABG pCO2 (35-45) mmHg ABG pO2 (80-100) mmHg ABG HCO3 (22-26) mmol/L ABG Total CO2 (21-31) mmol/L ABG O2 Saturation (95-100) % ABG Base Excess (-2-2) mmol/L FiO2 Sodium (137-145) mmol/L Potassium (3.4-5.1) mmol/L Chloride (98-107) mmol/L Carbon Dioxide (22-32) mmol/L BUN (9-20) mg/dL Creatinine (0.66-1.25) mg/dL Estimated GFR (>60) mL/min BUN/Creatinine Ratio (6-22) Glucose (80-110) mg/dL Lactate 3.6 H (0.7-2.1) mmol/L Calcium (8.4-10.2) mg/dL Ferritin (18-464) ng/mL Total Bilirubin (0.2-1.3) mg/dL AST (17-59) IU/L ALT (<50) IU/L Alkaline Phosphatase (38-126) U/L Lactate Dehydrogenase (313-618) U/L Total Creatine Kinase (55-170) U/L CK-MB (CK-2) CK-MB (CK-2) Rel Index Troponin I (0.01-0.034) ng/mL C-Reactive Protein (<1.0) mg/dL NT-Pro-B Natriuret Pep (<450) pg/mL Total Protein (6.3-8.2) g/dL Albumin (3.5-5.0) g/dL Globulin (1.7-4.1) g/dL Albumin/Globulin Ratio (1.0-2.8) Procalcitonin (<0.5) ng/mL Urine Color Yellow Urine Appearance Sl cloudy Urine pH 5.0 (4.5-8.0) Ur Specific [place] 1.010 (1.000-1.035) Urine Protein 1+ H (Negative) Urine Glucose (UA) Negative (Negative) g/dL Urine Ketones Negative (NEGATIVE) Urine Occult Blood 3+ H (Negative) Urine Nitrate Negative (Negative) Urine Bilirubin Negative (NEGATIVE) Urine Urobilinogen 0.2 (0.2) E.U./dL Ur Leukocyte Esterase 3+ H (NEGATIVE) Urine RBC 5-10/hpf H (0-5/HPF) Urine WBC 30-100/hpf H (0-5/HPF) Ur Squamous Epith Cells 1-5 /hpf (0-5/HPF) Amorphous Sediment 1+ Urine Bacteria Many (>30) H (None) Urine Mucus 1+ H (Negative) Ur Culture Indicated? Specimen cultured COVID-19 PCR (Negative) Blood Type O Positive Antibody Screen Negative Crossmatch See Detail 05/08/20 05/09/20 05/09/20 Range/Units 19:32 00:47 00:47 WBC 11.8 H (4.5-11.0) X10^3/uL RBC 3.48 L (4.5-5.9) X10^6/uL Hgb 11.9 L (13.5-17.5) g/dL Hct 36.0 L (41-53) % MCV 103.4 H (80-100) fL MCH 34.1 H (26-34) PG MCHC 33.0 (30-36) % RDW 16.8 H (11.6-14.8) % Plt Count 172 (150-400) X10^3/uL Neut % (Auto) 85.8 H (50-75) % Lymph % (Auto) 8.5 L (25-40) % [place] % (Auto) 4.6 (3-14) % Eos % (Auto) 0.6 L (2-4) % Baso % (Auto) 0.5 (0-2) % Neut # (Auto) 22824 H (7917-8314) /uL Lymph # (Auto) 1000 L (9416-1279) /uL [place] # (Auto) 500 (0-900) /uL Eos # (Auto) 100 (0-450) /uL Baso # (Auto) 100 (0-100) /uL D-Dimer (<230) ng/mL ABG pH (7.35-7.45) ABG pCO2 (35-45) mmHg ABG pO2 (80-100) mmHg ABG HCO3 (22-26) mmol/L ABG Total CO2 (21-31) mmol/L ABG O2 Saturation (95-100) % ABG Base Excess (-2-2) mmol/L FiO2 Sodium 137 (137-145) mmol/L Potassium 5.8 H (3.4-5.1) mmol/L Chloride 114 H (98-107) mmol/L Carbon Dioxide 14 L (22-32) mmol/L BUN 60 H (9-20) mg/dL Creatinine 3.46 H (0.66-1.25) mg/dL Estimated GFR 17.1 L (>60) mL/min BUN/Creatinine Ratio 17.3 (6-22) Glucose 135 H (80-110) mg/dL Lactate 2.0 (0.7-2.1) mmol/L Calcium 9.4 (8.4-10.2) mg/dL Ferritin (18-464) ng/mL Total Bilirubin (0.2-1.3) mg/dL AST (17-59) IU/L ALT (<50) IU/L Alkaline Phosphatase (38-126) U/L Lactate Dehydrogenase (313-618) U/L Total Creatine Kinase (55-170) U/L CK-MB (CK-2) CK-MB (CK-2) Rel Index Troponin I (0.01-0.034) ng/mL C-Reactive Protein (<1.0) mg/dL NT-Pro-B Natriuret Pep (<450) pg/mL Total Protein (6.3-8.2) g/dL Albumin (3.5-5.0) g/dL Globulin (1.7-4.1) g/dL Albumin/Globulin Ratio (1.0-2.8) Procalcitonin (<0.5) ng/mL Urine Color Urine Appearance Urine pH (4.5-8.0) Ur Specific [place] (1.000-1.035) Urine Protein (Negative) Urine Glucose (UA) (Negative) g/dL Urine Ketones (NEGATIVE) Urine Occult Blood (Negative) Urine Nitrate (Negative) Urine Bilirubin (NEGATIVE) Urine Urobilinogen (0.2) E.U./dL Ur Leukocyte Esterase (NEGATIVE) Urine RBC (0-5/HPF) Urine WBC (0-5/HPF) Ur Squamous Epith Cells (0-5/HPF) Amorphous Sediment Urine Bacteria (None) Urine Mucus (Negative) Ur Culture Indicated? COVID-19 PCR (Negative) Blood Type Antibody Screen Crossmatch 05/09/20 05/09/20 05/09/20 Range/Units 00:47 03:00 08:40 WBC 11.2 H (4.5-11.0) X10^3/uL RBC 3.05 L (4.5-5.9) X10^6/uL Hgb 10.3 L (13.5-17.5) g/dL Hct 30.8 L (41-53) % MCV 100.9 H (80-100) fL MCH 33.8 (26-34) PG MCHC 33.5 (30-36) % RDW 16.7 H (11.6-14.8) % Plt Count 155 (150-400) X10^3/uL Neut % (Auto) 95.5 H (50-75) % Lymph % (Auto) 1.7 L (25-40) % [place] % (Auto) 2.5 L (3-14) % Eos % (Auto) 0.0 L (2-4) % Baso % (Auto) 0.3 (0-2) % Neut # (Auto) 03442 H (6686-6789) /uL Lymph # (Auto) 200 L (4205-7732) /uL [place] # (Auto) 300 (0-900) /uL Eos # (Auto) 0 (0-450) /uL Baso # (Auto) 0 (0-100) /uL D-Dimer (<230) ng/mL ABG pH (7.35-7.45) ABG pCO2 (35-45) mmHg ABG pO2 (80-100) mmHg ABG HCO3 (22-26) mmol/L ABG Total CO2 (21-31) mmol/L ABG O2 Saturation (95-100) % ABG Base Excess (-2-2) mmol/L FiO2 Sodium (137-145) mmol/L Potassium (3.4-5.1) mmol/L Chloride (98-107) mmol/L Carbon Dioxide (22-32) mmol/L BUN (9-20) mg/dL Creatinine (0.66-1.25) mg/dL Estimated GFR (>60) mL/min BUN/Creatinine Ratio (6-22) Glucose (80-110) mg/dL Lactate 2.8 H 1.5 (0.7-2.1) mmol/L Calcium (8.4-10.2) mg/dL Ferritin (18-464) ng/mL Total Bilirubin (0.2-1.3) mg/dL AST (17-59) IU/L ALT (<50) IU/L Alkaline Phosphatase (38-126) U/L Lactate Dehydrogenase (313-618) U/L Total Creatine Kinase (55-170) U/L CK-MB (CK-2) CK-MB (CK-2) Rel Index Troponin I (0.01-0.034) ng/mL C-Reactive Protein (<1.0) mg/dL NT-Pro-B Natriuret Pep (<450) pg/mL Total Protein (6.3-8.2) g/dL Albumin (3.5-5.0) g/dL Globulin (1.7-4.1) g/dL Albumin/Globulin Ratio (1.0-2.8) Procalcitonin (<0.5) ng/mL Urine Color Urine Appearance Urine pH (4.5-8.0) Ur Specific [place] (1.000-1.035) Urine Protein (Negative) Urine Glucose (UA) (Negative) g/dL Urine Ketones (NEGATIVE) Urine Occult Blood (Negative) Urine Nitrate (Negative) Urine Bilirubin (NEGATIVE) Urine Urobilinogen (0.2) E.U./dL Ur Leukocyte Esterase (NEGATIVE) Urine RBC (0-5/HPF) Urine WBC (0-5/HPF) Ur Squamous Epith Cells (0-5/HPF) Amorphous Sediment Urine Bacteria (None) Urine Mucus (Negative) Ur Culture Indicated? COVID-19 PCR (Negative) Blood Type Antibody Screen Crossmatch 05/09/20 05/09/20 Range/Units 08:40 08:40 WBC (4.5-11.0) X10^3/uL RBC (4.5-5.9) X10^6/uL Hgb (13.5-17.5) g/dL Hct (41-53) % MCV (80-100) fL MCH (26-34) PG MCHC (30-36) % RDW (11.6-14.8) % Plt Count (150-400) X10^3/uL Neut % (Auto) (50-75) % Lymph % (Auto) (25-40) % [place] % (Auto) (3-14) % Eos % (Auto) (2-4) % Baso % (Auto) (0-2) % Neut # (Auto) (9817-1903) /uL Lymph # (Auto) (6288-4776) /uL [place] # (Auto) (0-900) /uL Eos # (Auto) (0-450) /uL Baso # (Auto) (0-100) /uL D-Dimer (<230) ng/mL ABG pH (7.35-7.45) ABG pCO2 (35-45) mmHg ABG pO2 (80-100) mmHg ABG HCO3 (22-26) mmol/L ABG Total CO2 (21-31) mmol/L ABG O2 Saturation (95-100) % ABG Base Excess (-2-2) mmol/L FiO2 Sodium 135 L (137-145) mmol/L Potassium 5.4 H (3.4-5.1) mmol/L Chloride 113 H (98-107) mmol/L Carbon Dioxide 12 L (22-32) mmol/L BUN 62 H (9-20) mg/dL Creatinine 3.56 H (0.66-1.25) mg/dL Estimated GFR 16.5 L (>60) mL/min BUN/Creatinine Ratio 17.4 (6-22) Glucose 200 H (80-110) mg/dL Lactate 0.7 (0.7-2.1) mmol/L Calcium 9.1 (8.4-10.2) mg/dL Ferritin (18-464) ng/mL Total Bilirubin 1.3 (0.2-1.3) mg/dL AST 22 (17-59) IU/L ALT 11 (<50) IU/L Alkaline Phosphatase 73 (38-126) U/L Lactate Dehydrogenase (313-618) U/L Total Creatine Kinase (55-170) U/L CK-MB (CK-2) CK-MB (CK-2) Rel Index Troponin I (0.01-0.034) ng/mL C-Reactive Protein (<1.0) mg/dL NT-Pro-B Natriuret Pep (<450) pg/mL Total Protein 5.5 L (6.3-8.2) g/dL Albumin 2.7 L (3.5-5.0) g/dL Globulin 2.8 (1.7-4.1) g/dL Albumin/Globulin Ratio 1.0 (1.0-2.8) Procalcitonin (<0.5) ng/mL Urine Color Urine Appearance Urine pH (4.5-8.0) Ur Specific [place] (1.000-1.035) Urine Protein (Negative) Urine Glucose (UA) (Negative) g/dL Urine Ketones (NEGATIVE) Urine Occult Blood (Negative) Urine Nitrate (Negative) Urine Bilirubin (NEGATIVE) Urine Urobilinogen (0.2) E.U./dL Ur Leukocyte Esterase (NEGATIVE) Urine RBC (0-5/HPF) Urine WBC (0-5/HPF) Ur Squamous Epith Cells (0-5/HPF) Amorphous Sediment Urine Bacteria (None) Urine Mucus (Negative) Ur Culture Indicated? COVID-19 PCR (Negative) Blood Type Antibody Screen Crossmatch Point of Care Testing Stool Occult Blood Negative Discharge Plan Departure Patient Disposition: [facility] Clinical Impression: Tachycardia, Hypoxia, Anemia, macrocytic, Atelectasis, right, Pneumonitis Fever Qualifiers: Fever type: unspecified Qualified Code(s): R50.9 - Fever, unspecified Sepsis Qualifiers: Sepsis type: sepsis due to unspecified organism Sepsis acute organ dysfunction status: unspecified Qualified Code(s): A41.9 - Sepsis, unspecified organism Urinary tract infection Qualifiers: Urinary tract infection type: acute cystitis Hematuria presence: with hematuria Qualified Code(s): N30.01 - Acute cystitis with hematuria Renal failure Qualifiers: Renal failure chronicity: acute Acute renal failure type: unspecified Qualified Code(s): N17.9 - Acute kidney failure, unspecified Discharge Date/Time: 05/09/20 10:37 Prescriptions: No Action oxycodone-acetaminophen 10-325 mg tablet 1 tab PO Q4HR PRN (Reason: Pain, Severe) RF: 0 docusate sodium 250 mg capsule 10 mg PO BID RF: 0 pramipexole 1 mg tablet 3 mg PO BEDTIME RF: 0 colesevelam 625 mg tablet 1,875 mg PO BID RF: 0 memantine 5 mg tablet 5 mg PO BID RF: 0 Januvia 100 mg tablet 100 mg PO DAILY RF: 0 atorvastatin [Lipitor] 10 mg Tablet 5 mg PO BEDTIME RF: 0 hydrocodone-acetaminophen 5-325 mg Tablet 1 tab PO Q4-6H PRN (Reason: Pain (Scale Score 4-6)) RF: 0 sildenafil [Viagra] 25 mg Tablet RF: 0 aspirin 81 mg Tablet,Delayed Release (Dr/Ec) 81 mg PO DAILY RF: 0 tamsulosin 0.4 mg Capsule 0.4 mg PO DAILY RF: 0 glipizide 2.5 mg Tablet Extended Release 24hr 2.5 mg PO DAILY RF: 0 metformin 1,000 mg Tablet See Rx Instructions .ROUTE .COMPLEX RF: 0 lisinopril 10 mg Tablet 10 mg PO DAILY RF: 0 omeprazole magnesium [Prilosec OTC] 20 mg Tablet,Delayed Release (Dr/Ec) 20 mg PO DAILY RF: 0 cholecalciferol (vitamin D3) 25 mcg (1,000 unit) Tablet 25 mcg PO DAILY RF: 0 Dulera 200-5 mcg/actuation Hfa Aerosol Inhaler 2 puff INHALATION BID RF: 0
[2020-05-08 17:39] LABS: Add Manual Diff / Slide Review NO; Basophils Absolute Auto 0 /uL (0-100); Basophils Percent Auto 0.3 % (0-2); Eosinophils Absolute Auto 0 /uL (0-450); Eosinophils Percent Auto 0.1 % (2-4); Hematocrit 23.1 % (41-53); Hemoglobin 7.5 g/dL (13.5-17.5); Lymphocytes Absolute Auto 400 /uL (1100-4500); Lymphocytes Percent Auto 3.2 % (25-40); Mean Corpuscular HGB Conc 32.4 % (30-36); Mean Corpuscular Hemoglobin 34.4 PG (26-34); Mean Corpuscular Volume 106.1 fL (80-100); Monocytes Absolute Auto 1200 /uL (0-900); Monocytes Percent Auto 10.7 % (3-14); Neutrophils Absolute Auto 9900 /uL (1500-7000); Neutrophils Percent Auto 85.7 % (50-75); Platelet Count 158 X10^3/uL (150-400); Red Blood Cell Count 2.18 X10^6/uL (4.5-5.9); Red Cell Distribution Width 12.4 % (11.6-14.8); White Blood Cell Count 11.5 X10^3/uL (4.5-11.0)
[2020-05-08] MEDS: PIPERACILLIN-TAZO 4.5 GM/100 ML FROZ.PIGGY IV (17:39)
[2020-05-08 17:53] LABS: Alanine Aminotransferase 11 IU/L (<50); Albumin 2.6 g/dL (3.5-5.0); Alkaline Phosphatase 69 U/L (38-126); Aspartate Aminotransferase 14 IU/L (17-59); BUN Creatinine Ratio 17.7 (6-22); Bilirubin Total 0.9 mg/dL (0.2-1.3); Blood Urea Nitrogen 57 mg/dL (9-20); Calcium 8.7 mg/dL (8.4-10.2); Carbon Dioxide 13 mmol/L (22-32); Chloride 112 mmol/L (98-107); Creatine Kinase 32 U/L (55-170); Estimated Glomerular Filt Rate 18.6 mL/min (>60); Globulin 2.6 g/dL (1.7-4.1); Glucose 166 mg/dL (80-110); Potassium 4.7 mmol/L (3.4-5.1); Sodium 132 mmol/L (137-145); Total Protein 5.2 g/dL (6.3-8.2)
[2020-05-08 17:54] LABS: Lactate (Lactic Acid) 3.6 mmol/L (0.7-2.1)
--- NOTE | 2020-05-08 17:54 | PC.NURSE ---
Recent stent removed, fever since friday. Increase SOB with exertion.
[2020-05-08 17:55] LABS: HEMOLYSIS < 15 (0-50)
[2020-05-08 18:02] LABS: NT-proBNP (BNP-Adult 18+) 573 pg/mL (<450)
[2020-05-08 18:06] LABS: Troponin I < 0.012 ng/mL (0.01-0.034)
[2020-05-08 18:10] LABS: D Dimer 1416 ng/mL (<230)
[2020-05-08] MEDS: VANCOMYCIN 1,500 MG/300 ML FROZ.PIGGY 200 MG IV (18:10)
[2020-05-08 18:11] LABS: Procalcitonin 1.93 ng/mL (<0.5)
[2020-05-08 18:17] LABS: Lactate Dehydrogenase 293 U/L (313-618)
[2020-05-08 18:28] LABS: Ferritin 181 ng/mL (18-464)
[2020-05-08 18:30] LABS: Appearance Urine UA SL CLOUDY; Bilirubin Urine UA NEGATIVE (NEGATIVE); Color Urine UA YELLOW; Glucose Urine UA NEGATIVE (Negative); Ketones Urine UA NEGATIVE (NEGATIVE); Leukocyte Esterase Urine UA 3+ (NEGATIVE); Nitrite Urine UA NEGATIVE (Negative); Occult Blood Urine UA 3+ (Negative); Protein Urine UA 1+ (Negative); Urobilinogen Urine UA 0.2 E.U./dL (0.2)
[2020-05-08 18:40] LABS: COVID19 -Nasal RAPID Negative (Negative)
[2020-05-08 18:49] LABS: RBC Urine 5-10/HPF (0-5/HPF)
[2020-05-08 18:50] LABS: Amorphous Sediment Urine 1+; Bacteria Urine Many (>30); Culture Indicated Urine Specimen Cultured; Mucus Urine 1+ (Negative); Squamous Epithelial Cell Urine 1-5 /HPF (0-5/HPF); WBC Urine 30-100/HPF (0-5/HPF)
--- NOTE | 2020-05-08 19:14 | PC.NURSE ---
Permission from patient to update .
--- NOTE | 2020-05-08 19:22 | DI.CT.S_ITS ---
PROCEDURE: CT ABDOMEN PELVIS WO CON INDICATIONS: sepsis, macrocytic anemia, left ureteral stent removal TECHNIQUE: Noncontrast 5 mm thick sections acquired from the diaphragms to the symphysis. 5 mm coronal and sagittal reformats were then performed. For radiation dose reduction, the following was used: automated exposure control, adjustment of mA and/or kV according to patient size. COMPARISON: [facility], CT, CT ABDOMEN PELVIS W CON, 04/17/2020, 13:20. FINDINGS: Image quality: Excellent. ABDOMEN: Patchy consolidation seen within the deep end and right lower lobe. Heart size is normal. Coronary artery calcifications are present. Solid organs: Liver is normal in size. Gallbladder appears distended . Pancreas is normal in contours. Spleen is normal in size. No adrenal nodules. Bilateral renal cortical scarring and atrophy. There is bilateral nephrolithiasis measuring up to 7 mm on the right and up to 3-4 mm on the left. There is mild to moderate right hydroureteronephrosis probably related to multiple dependent 2 mm calculi seen within the distal ureter. No bladder calculi seen. Mild hiatal hernia. Surgical clips at the GE junction. No free fluid or air. Large amount of stool is present within the rectal vault Nodes and vessels: No retroperitoneal or mesenteric adenopathy by size criteria. Aorta and inferior vena cava are normal in caliber. Miscellaneous: No ventral hernias. PELVIS: Genitourinary: Bladder wall thickness is normal. Bilateral fat containing small inguinal hernias. Diffuse osteopenia Bones: No suspicious bony lesions. No vertebral body compression fractures. IMPRESSION: [id number] right hydroureteronephrosis. A few 2 mm residual calculi/debris seen within the distal left ureter. Additional bilateral nephrolithiasis as above Patchy consolidative opacities in the right lung base, possibly aspiration/atelectasis versus less likely pneumonia. Additional chronic and incidental findings as above. Dictated by: Tarun Car M.D. on 05/08/2020 at 20:13 Approved by: Tarun Car M.D. on 05/08/2020 at 20:18
[2020-05-08 19:32] LABS: Reflexed Lactate in 2 Hours Y
[2020-05-08] MEDS: LIDOCAINE 2% (UROJET) 5 ML GEL TOP (20:30)
--- NOTE | 2020-05-08 20:43 | PC.NURSE ---
urojet administered prior to insertion. Patient tolerated well
--- NOTE | 2020-05-08 20:49 | PC.NURSE ---
Updated Debbie our patient's at request of patient
--- NOTE | 2020-05-08 21:23 | PC.NURSE ---
PER MD Bustillos
[2020-05-09] VITALS (8 sets, daily range): BP systolic 88–222; BP diastolic 52–91; PULSE 91–129; RESP 19–34; TEMP 36.4–37.4; O2SAT 91–98
[2020-05-09] MEDS: KETOROLAC 60 MG/2 ML VIAL 15 MG IV (00:43)
[2020-05-09] MEDS: PIPERACILLIN-TAZO 4.5 GM/100 ML FROZ.PIGGY IV ×2 (00:43→08:44)
[2020-05-09] MEDS: ACETAMINOPHEN 325 MG TABLET 650 MG PO (00:43)
--- NOTE | 2020-05-09 00:50 | PC.NURSE ---
Around 0000 checked on patient. Pt having rigerous chills, tacycardic 120's, breathing rapid, afebrile 97.9F oral. pt states he is not SOB just feels cold. Dr Rocha made aware of change. Lab in to draw repeat labs. tylenol and torodol given per DEC. wrapped in warm blankets. ABX infusing at this time. Noted that pt has minimal amount of output for the amount of intake. 325mL dark yellow urine emptied. Pt states he is feeling better. will continue to monitor
[2020-05-09 01:00] LABS: Add Manual Diff / Slide Review NO; Basophils Absolute Auto 100 /uL (0-100); Basophils Percent Auto 0.5 % (0-2); Eosinophils Absolute Auto 100 /uL (0-450); Eosinophils Percent Auto 0.6 % (2-4); Hemoglobin 11.9 g/dL (13.5-17.5); Lymphocytes Absolute Auto 1000 /uL (1100-4500); Lymphocytes Percent Auto 8.5 % (25-40); Mean Corpuscular Hemoglobin 34.1 PG (26-34); Mean Corpuscular Volume 103.4 fL (80-100); Monocytes Absolute Auto 500 /uL (0-900); Monocytes Percent Auto 4.6 % (3-14); Neutrophils Absolute Auto 10100 /uL (1500-7000); Neutrophils Percent Auto 85.8 % (50-75); Platelet Count 172 X10^3/uL (150-400); Red Blood Cell Count 3.48 X10^6/uL (4.5-5.9); Red Cell Distribution Width 16.8 % (11.6-14.8); White Blood Cell Count 11.8 X10^3/uL (4.5-11.0)
[2020-05-09 01:04] LABS: Lactate (Lactic Acid) 2.8 mmol/L (0.7-2.1)
--- NOTE | 2020-05-09 01:04 | DI.RAD.S_ITS ---
PROCEDURE: XR CHEST 1V INDICATIONS: TACHYCARDIA, TACHYPNEA TECHNIQUE: One view of the chest was acquired. COMPARISON: [facility], CR, XR CHEST 1V, 05/08/2020, 17:12 FINDINGS: Surgical changes and devices: Cardiac pacer. Lungs and pleura: Lungs are clear. No pleural effusions or pneumothorax. Mediastinum: Mediastinal contours appear normal. Heart size is normal. Bones and chest wall: No suspicious bony lesions. Overlying soft tissues appear unremarkable. IMPRESSION: No acute disease. Scattered scarring/atelectasis Dictated by: Tarun Car M.D. on 05/09/2020 at 8:27 Approved by: Tarun Car M.D. on 05/09/2020 at 8:27
[2020-05-09 01:05] LABS: BUN Creatinine Ratio 17.3 (6-22); Blood Urea Nitrogen 60 mg/dL (9-20); Calcium 9.4 mg/dL (8.4-10.2); Carbon Dioxide 14 mmol/L (22-32); Chloride 114 mmol/L (98-107); Estimated Glomerular Filt Rate 17.1 mL/min (>60); Glucose 135 mg/dL (80-110); HEMOLYSIS 22 (0-50); Sodium 137 mmol/L (137-145)
[2020-05-09 01:08] LABS: Potassium 5.8 mmol/L (3.4-5.1)
[2020-05-09] MEDS: LACTATED RINGERS 1,000 ML 1000 ML IV (01:10)
[2020-05-09] MEDS: FUROSEMIDE 40 MG/4 ML VIAL IV (01:11)
--- NOTE | 2020-05-09 02:18 | PC.NURSE ---
Dr Rocha made aware of pt status including BP 80's/40's and HR 120's
[2020-05-09] MEDS: DEXAMETHASONE 10 MG/ML VIAL IV (02:40)
[2020-05-09 02:51] LABS: Reflexed Lactate in 2 Hours Y
[2020-05-09 03:17] LABS: Lactate 2HR (Lactic Acid Rflx) 1.5 mmol/L (0.7-2.1)
[2020-05-09] MEDS: PRAMIPEXOLE 1 MG TABLET PO (08:45)
[2020-05-09 08:50] LABS: Add Manual Diff / Slide Review NO; Basophils Absolute Auto 0 /uL (0-100); Basophils Percent Auto 0.3 % (0-2); Eosinophils Absolute Auto 0 /uL (0-450); Hematocrit 30.8 % (41-53); Hemoglobin 10.3 g/dL (13.5-17.5); Lymphocytes Absolute Auto 200 /uL (1100-4500); Lymphocytes Percent Auto 1.7 % (25-40); Mean Corpuscular HGB Conc 33.5 % (30-36); Mean Corpuscular Hemoglobin 33.8 PG (26-34); Mean Corpuscular Volume 100.9 fL (80-100); Monocytes Absolute Auto 300 /uL (0-900); Monocytes Percent Auto 2.5 % (3-14); Neutrophils Absolute Auto 10700 /uL (1500-7000); Neutrophils Percent Auto 95.5 % (50-75); Platelet Count 155 X10^3/uL (150-400); Red Blood Cell Count 3.05 X10^6/uL (4.5-5.9); Red Cell Distribution Width 16.7 % (11.6-14.8); White Blood Cell Count 11.2 X10^3/uL (4.5-11.0)
[2020-05-09 08:58] LABS: Lactate (Lactic Acid) 0.7 mmol/L (0.7-2.1)
[2020-05-09 08:59] LABS: Alanine Aminotransferase 11 IU/L (<50); Albumin 2.7 g/dL (3.5-5.0); Alkaline Phosphatase 73 U/L (38-126); Aspartate Aminotransferase 22 IU/L (17-59); BUN Creatinine Ratio 17.4 (6-22); Bilirubin Total 1.3 mg/dL (0.2-1.3); Blood Urea Nitrogen 62 mg/dL (9-20); Calcium 9.1 mg/dL (8.4-10.2); Carbon Dioxide 12 mmol/L (22-32); Chloride 113 mmol/L (98-107); Estimated Glomerular Filt Rate 16.5 mL/min (>60); Globulin 2.8 g/dL (1.7-4.1); Glucose 200 mg/dL (80-110); HEMOLYSIS 20 (0-50); Sodium 135 mmol/L (137-145); Total Protein 5.5 g/dL (6.3-8.2)
[2020-05-09 09:00] LABS: Potassium 5.4 mmol/L (3.4-5.1)
[2020-05-10 08:55] LABS: Acinetobacter baumannii Not Detected (Not Detect); Candida albicans Not Detected (Not Detect); Candida glabrata Not Detected (Not Detect); Candida krusei Not Detected (Not Detect); Candida parapsilosis Not Detected (Not Detect); Candida tropicalis Not Detected (Not Detect); E. coli Not Detected (Not Detect); Enterobacter cloacae complex Detected (Not Detect); Enterobacteriaceae species Not Detected (Not Detect); Enterococcus species Not Detected (Not Detect); Haemophilus influenzae Not Detected (Not Detect); KPC (carbapenem-resist gene) Not Detected (Not Detect); Listeria monocytogenes Not Detected (Not Detect); Neisseria meningitidis Not Detected (Not Detect); Proteus species Not Detected (Not Detect); Pseudomonas aeruginosa Not Detected (Not Detect); Serratia marcescens Not Detected (Not Detect); Staphylococcus species Not Detected (Not Detect); Streptococcus agalactiae (Gr B Not Detected (Not Detect); Streptococcus pneumonia Not Detected (Not Detect); Streptococcus pyogenes (Gr A) Not Detected (Not Detect); Streptococcus species Not Detected (Not Detect)
== END 2020-05-09 10:37 | disposition short-term general hospital (02) ==
PROVIDERS: Emergency Medicine; Emergency Provider Emergency Medicine
DX: N17.9 Acute kidney failure, unspecified (principal); J18.9 Pneumonia, unspecified organism; J98.11 Atelectasis; R00.0 Tachycardia, unspecified; A41.9 Sepsis, unspecified organism; D53.9 Nutritional anemia, unspecified; R50.9 Fever, unspecified; I10 Essential (primary) hypertension; E11.9 Type 2 diabetes mellitus without complications; N30.01 Acute cystitis with hematuria; R09.02 Hypoxemia
CPT/HCPCS: 36415; 36430; 36600; 71045; 74176; 80048; 80053; 81001; 82272; 82550; 82728; 82805; 83605; 83615; 83880; 84145; 84484; 85025; 85379; 86140; 86850; 86900; 86901; 87040; 87077; 87086; 87150; 87186; 87205; 87635; 93005; 96361; 96365; 96366; 96367; 96375; 99285; 99291; 99292; P9016; J1100; J1885; J1940; J2543